=== PATIENT | female | born 1970 | race Caucasian/White ===

== ENCOUNTER 2016-11-23 10:03 | Emergency (ER) | payer SELFPAY ==
[2016-11-23 10:12] VITALS: BP 120/79; BMI 25.8
--- NOTE | 2016-11-23 10:37 | DR.CP ---
HPI - Time Seen Time seen: 10:32 - PCP Primary Care Physician: NFD - Complaint Chief Complaint:: PT STATES " I HAVE BEEN HAVING CHEST PAIN ON AND OFF AND I HAVE BEEN ALOT OF STRESS MY 15 Y/O DAUGHTER IS ". I HAVE BEEN HAVING CHEST PAIN SINCE LAST WEEK OFF AND ON AND IT STARTED AGAIN LAST NIGHT. - Reviewed Nurses Notes Review: Yes - Source History Provided: Patient - Mode of Arrival Mode of Arrival: Ambulatory - Timing Onset of Chief Complaint: 11/16/16 Came on: Gradually - Duration Duration: Intermittent How lon Duration: Days - Location Chest Pain Radiation Location: None - Context Onset: Other (stress) Cardiac Risk Factors: Hyperlipidemia PE Risk Factors: None History of: None Prehospital Care: None - Quality Quality: Sharp, Stabbing - Severity Severity: Mild - Modifying Factors Worsens: Other (stress) Impoves: Nothing - Associated Signs and Symptoms Associated Signs and Symptoms: None PMH - PMH Past Medical History: No Past Surgical History: No Surgical History: No History - Family History History of Family Medical Conditions: No - Social History Does patient currently use any type of tobacco product: No Have you used tobacco products in the last 12 months: No Type of Tobacco Use: None Does any household member use tobacco: No Alcohol Use: None Do you use any recreational Drugs:: No Lives With: Family Lives Where: Home - infectious screening In the last 2 months have you had wt loss of >10#?: NO Have you had fever, night sweats or hemotysis?: No Have you traveled outside the country in the last 6 months?: No Isolation: Standard ROS - Review of Systems Constitutional: No Symptoms Reported Eyes: No Symptoms Reported ENTM: No Symptoms Reported Respiratoy: No Symptoms Reported Cardiovascular: Chest Pain Gastrointestinal/Abdominal: No Symptoms Reported Genitourinary: No Symptoms Reported Neurological: No Symptoms Reported Musculoskeletal: No Symptoms Reported Integumentary: No Symptoms Reported Hematologic/Lymphatic: No Symptoms Reported Endocrine: No Symptoms Reported Psychiatric: Anxiety All Other Systems: Reviewed and Negative PE - Vitals Vitals: Temperature 97.6 F Pulse Rate 106 Respiratory Rate 20 Blood Pressure 120/79 O2 Sat by Pulse Oximetry 97 - General Limitations: No Limitations General Appearance: Alert, In No Apparent Distress - Head Head Exam: Normal Inspection - Eyes Eye exam: Normal Appearance, EOMI. negative: Scleral Icterus, Conjunctival Injection - ENT ENT Exam: Normal Oropharynx - Chest Chest Inspection: Normal Inspection - Respiratory Respiratory Exam: Normal Lung Sounds Bilat. negative: Accessory Muscle Use, Respiratory Distress Respiratory Exam: Bilateral Clear to Auscultation - Cardiovascular Cardiovascular Exam: Tachycardia Pulse: Normal Edema: Normal - Abdominal Exam Abdominal Exam: Normal Inspection - Extremities Extremities Exam: Normal Inspection - Back Back Exam: Normal Inspection, Full ROM - Neurologic Neurological Exam: Alert, Oriented X3, CN II-XII Intact - Skin Skin Exam: Intact, Normal Color ROR - Labs Reviewed Result Diagrams: 11/23/16 10:55 11/23/16 10:55 Laboratory: WBC 4.0 X10^3/uL (3.6-10.0) 11/23/16 10:55 RBC 4.87 X10^6/uL (3.5-5.4) 11/23/16 10:55 Hgb 14.0 g/dL (12.0-16.0) 11/23/16 10:55 Hct 42.1 % (36.0-47.0) 11/23/16 10:55 MCV 86.4 fL (80.0-100.0) 11/23/16 10:55 MCH 28.7 pg (27.0-34.0) 11/23/16 10:55 MCHC 33.2 g/dL (33.0-35.0) 11/23/16 10:55 RDW 13.4 % (11.6-16.5) 11/23/16 10:55 Plt Count 137 X10^3/uL (150.0-450.0) L 11/23/16 10:55 MPV 10.6 fL (7.4-11.0) 11/23/16 10:55 Neut % 55.9 % (42.0-75.0) 11/23/16 10:55 Lymph % 28.2 % (21.0-51.0) 11/23/16 10:55 [place] % 12.7 % (0.0-13.0) 11/23/16 10:55 Eos % 1.4 % (0.9-2.9) 11/23/16 10:55 Baso % 1.8 % (0.2-1.0) H 11/23/16 10:55 Neut # 2.2 x10^3/uL (2.2-4.8) 11/23/16 10:55 Lymph # 1.1 X10^3/uL (1.3-2.9) L 11/23/16 10:55 [place] # 0.5 x10^3/uL (0.3-0.8) 11/23/16 10:55 Eos # 0.1 x10^3/uL (0.0-0.2) 11/23/16 10:55 Baso # 0.1 X10^3/uL (0.0-0.1) 11/23/16 10:55 Absolute Nucleated RBC 0.1 /100WBC 11/23/16 10:55 INR Target Range - 11/23/16 10:55 INR 1.03 (0.8-1.3) 11/23/16 10:55 Sodium 140 mmol/L (136-145) 11/23/16 10:55 Corrected Sodium TNP 11/23/16 10:55 Potassium 3.5 mmol/L (3.5-5.1) 11/23/16 10:55 Chloride 105 mmol/L (98-107) 11/23/16 10:55 Carbon Dioxide 24.8 mmol/L (21-32) 11/23/16 10:55 BUN 11 mg/dL (7-18) 11/23/16 10:55 Creatinine 1.02 mg/dL (0.55-1.02) 11/23/16 10:55 Est GFR (MDRD) Af Amer > 60 (>60) 11/23/16 10:55 Est GFR (MDRD) Non-Af > 60 (>60) 11/23/16 10:55 Glucose 98 mg/dL (65-99) 11/23/16 10:55 Calcium 8.6 mg/dL (8.5-10.1) 11/23/16 10:55 Corrected Calcium 9.2 mg/dL (8.5-10.1) 11/23/16 10:55 Magnesium 2.2 mg/dL (1.7-2.9) 11/23/16 10:55 Total Bilirubin 0.50 mg/dL (0.2-1.0) 11/23/16 10:55 AST 46 Units/L (15-37) H 11/23/16 10:55 ALT 27 Units/L (12-78) 11/23/16 10:55 Alkaline Phosphatase 59 Units/L (46-116) 11/23/16 10:55 Creatine Kinase 33 Units/L (26-192) 11/23/16 10:55 CK-MB (CK-2) < 1.0 ng/mL (0-4.0) 11/23/16 10:55 CK/CKMB % Calc 3.0 % (<4) 11/23/16 10:55 Troponin I < 0.02 ng/mL (0-1.5) 11/23/16 10:55 Total Protein 8.5 g/dL (6.4-8.2) H 11/23/16 10:55 Albumin 3.3 g/dL (3.4-5.0) L 11/23/16 10:55 Globulin 5.2 g/dL (2.5-4.5) H 11/23/16 10:55 Albumin/Globulin Ratio 0.6 Ratio (1.1-2.1) L 11/23/16 10:55 - XRAY XRAY Interpreted by: Radiologist XRAY Findings: chest: normal - Diagnosis Discharge Problem: Chest pain, non-cardiac - Discharge Plan Condition: Stable Prescriptions: Aspirin EC [ECOTRIN 325 MG *] 325 mg PO DAILY #30 tab - Follow ups/Referrals Follow ups/Referrals: NFD,None [Primary Care Provider] - 3 days - Instructions
[2016-11-23] MEDS ORDERED: ASPIRIN PO ONE (10:39)
[2016-11-23] MEDS ORDERED: ASPIRIN ONE (10:50)
[2016-11-23 11:23] LABS: BASOPHILS # (AUTO) 0.1 X10^3/uL (0.0-0.1); BASOPHILS % (AUTO) 1.8 % (0.2-1.0); EOSINOPHILS # (AUTO) 0.1 x10^3/uL (0.0-0.2); EOSINOPHILS % (AUTO) 1.4 % (0.9-2.9); HEMATOCRIT 42.1 % (36.0-47.0); LYMPHOCYTES # (AUTO) 1.1 X10^3/uL (1.3-2.9); LYMPHOCYTES % (AUTO) 28.2 % (21.0-51.0); MEAN CORPUSCULAR HEMOGLOBIN 28.7 pg (27.0-34.0); MEAN CORPUSCULAR HGB CONC 33.2 g/dL (33.0-35.0); MEAN CORPUSCULAR VOLUME 86.4 fL (80.0-100.0); MEAN PLATELET VOLUME 10.6 fL (7.4-11.0); MONOCYTES # (AUTO) 0.5 x10^3/uL (0.3-0.8); MONOCYTES % (AUTO) 12.7 % (0.0-13.0); NEUTROPHILS # (AUTO) 2.2 x10^3/uL (2.2-4.8); NEUTROPHILS % (AUTO) 55.9 % (42.0-75.0); PLATELET COUNT 137 X10^3/uL (150.0-450.0); RED BLOOD COUNT 4.87 X10^6/uL (3.5-5.4); RED CELL DISTRIBUTION WIDTH 13.4 % (11.6-16.5)
--- NOTE | 2016-11-23 11:35 | RAD ---
HISTORY: Severe chest pain since last night. Coughing spells with some chest pain. Study: Single-view chest, done portably Comparison: No priors Findings: The trachea is midline. Heart size is normal. Lungs and pleural spaces are clear. Osseous structures are intact. The osseous structures are intact. IMPRESSION: No acute cardiopulmonary disease. Reported By:
[2016-11-23 11:44] LABS: BLOOD UREA NITROGEN 11 mg/dL (7-18); CALCIUM 8.6 mg/dL (8.5-10.1); CARBON DIOXIDE 24.8 mmol/L (21-32); CHLORIDE 105 mmol/L (98-107); CREATININE 1.02 mg/dL (0.55-1.02); GLUCOSE 98 mg/dL (65-99); SODIUM 140 mmol/L (136-145); TROPONIN I < 0.02 ng/mL (0-1.5); eGFR BLACK RACES > 60 (>60); eGFR NON BLACK RACES > 60 (>60)
[2016-11-23 11:46] LABS: ALANINE AMINOTRANSFERASE 27 Units/L (12-78); ALBUMIN 3.3 g/dL (3.4-5.0); ALKALINE PHOSPHATASE 59 Units/L (46-116); ASPARTATE AMINO TRANSFERASE 46 Units/L (15-37); COR CA(FOR HYPOALB) 9.2 mg/dL (8.5-10.1); CREATINE KINASE 33 Units/L (26-192); CREATINE KINASE MB < 1.0 ng/mL (0-4.0); MAGNESIUM 2.2 mg/dL (1.7-2.9); TOTAL PROTEIN 8.5 g/dL (6.4-8.2)
== END 2016-11-23 12:00 | disposition home or self-care (01) ==
LOC: ER 10:26
DX: R07.89 Other chest pain (principal)
CPT/HCPCS: 36415; 71010; 80053; 82550; 82553; 83735; 84484; 85025; 85610; 93005; 93010; 99283